=== PATIENT | female | born 1980 | race Caucasian/White ===

== ENCOUNTER → 2021-10-25 | Outpatient (CLI) | payer SELFPAY | LOC: LAB 09:36 | DX: I50.9 Heart failure, unspecified (principal); E78.5 Hyperlipidemia, unspecified ==

== ENCOUNTER → 2021-12-27 | Outpatient (CLI) | payer SELFPAY ==
--- NOTE | 2021-12-28 12:12 | NUR ---
Patient returned holter monitor at this time. Paperwork and device sent to [facility]
== END ==
LOC: AMSURD 11:34
DX: R00.0 Tachycardia, unspecified (principal)

== ENCOUNTER 2024-04-12 14:36 | Emergency (ER) | payer SELFPAY ==
[~2024-04-12] VITALS: Ht 170.2 cm; Wt 161.4 kg
[2024-04-12 15:14] LABS: BASO # 0.02 K/mm3 (0.02-0.10); EOS # 0.43 K/mm3 (0.04-0.40); EOS % 5.3 % (1.0-5.0); HEMATOCRIT 43.2 % (37.0-47.0); HEMOGLOBIN 14.3 g/dL (12.5-16.0); LYMPH# 1.99 K/mm3 (1.50-4.00); MEAN CELL VOLUME 87 fl (78-100); MEAN CORPUSCULAR HEMOGLOBIN 29 pg (27-31); MEAN CORPUSCULAR HGB CONC 33 g/dL (33-37); MEAN PLATELET VOLUME 10.2 fl (7.4-10.4); MONO # 0.33 K/mm3 (0.20-0.80); NEU # 5.33 K/mm3 (1.40-6.50); PLATELET COUNT 277 K/mm3 (130-400); RED BLOOD COUNT 4.95 M/mm3 (4.10-5.30); RED CELL DISTRIBUTION WIDTH 13.5 % (11.5-14.5); WHITE BLOOD COUNT 8.1 K/mm3 (4.8-10.8)
[2024-04-12 15:22] LABS: ALBUMIN 3.6 g/dL (3.5-5.0)
[2024-04-12 15:23] LABS: CALCIUM 8.8 mg/dL (8.3-10.5)
[2024-04-12 15:24] LABS: TOTAL PROTEIN 6.3 g/dL (6.4-8.3)
[2024-04-12 15:26] LABS: TOTAL BILIRUBIN 0.2 mg/dL (0.2-1.2)
[2024-04-12] MEDS ORDERED: WELLBUTRIN XL150 M2 PO (15:26)
[2024-04-12] MEDS ORDERED: MAGNESIUM OXID400 MG PO (15:28)
[2024-04-12] MEDS ORDERED: LOSARTAN POTASS1 TA2 PO (15:30)
[2024-04-12 15:31] LABS: MAGNESIUM 1.91 mg/dL (1.60-2.60)
[2024-04-12] MEDS ORDERED: POTASSIUM CHLO20 ME4 PO (15:31)
[2024-04-12] MEDS ORDERED: FUROSEMIDE40 MG (15:31)
[2024-04-12] MEDS ORDERED: TOPIRAMATE100 MG PO (15:33)
[2024-04-12] MEDS ORDERED: DESYREL DIVIDO150 M1 PO (15:35)
[2024-04-12] MEDS ORDERED: ALPRAZOLAM0.5 MG PO (15:37)
[2024-04-12 15:39] LABS: TROPONIN-I 0.139 ng/mL (0.00-0.033)
[2024-04-12 19:17] VITALS: BP 136/87
== END 2024-04-12 19:20 | disposition short-term general hospital (02) ==
LOC: ED 14:36
PROVIDERS: Nurse Practitioner Family
DX: I21.4 Non-ST elevation (NSTEMI) myocardial infarction (principal); I11.0 Hypertensive heart disease with heart failure; I50.9 Heart failure, unspecified; Z79.899 Other long term (current) drug therapy
CPT/HCPCS: J1650